=== PATIENT | male | born 1960 | race Caucasian/White ===

== ENCOUNTER 2019-02-13 18:18 | Emergency (ER) | payer OTHER ==
[~2019-02-13] VITALS: Ht 165.1 cm; Wt 86.2 kg
[2019-02-13 18:20] VITALS: BP 165/100
== END 2019-02-13 19:05 | disposition home or self-care (01) ==
LOC: ER 18:21
DX: M20.011 Mallet finger of right finger(s) (principal); W23.0XXA Caught, crushed, jammed, or pinched between moving objects, initial encounter; Y93.89 Activity, other specified; Y92.89 Other specified places as the place of occurrence of the external cause; Y99.0 Civilian activity done for income or pay
CPT/HCPCS: 73140-TC

== ENCOUNTER 2019-11-25 08:19 | Outpatient (CLI) | payer BC ==
[2019-11-25 09:32] LABS: BASOPHILS % (AUTO) 0.5 % (0.0-2.0); EOSINOPHILS % (AUTO) 1.3 % (0.0-6.0); HEMATOCRIT 45 % (39-51); HEMOGLOBIN 14.6 g/dL (13.5-17.5); LYMPHOCYTES # (AUTO) 2.6 /CMM (0.8-4.8); LYMPHOCYTES % (AUTO) 45.8 % (20.0-44.0); MEAN CORPUSCULAR HGB CONC 33 g/dl (31.0-36.0); MEAN CORPUSCULAR VOLUME 96 fL (80-96); MONOCYTES # (AUTO) 0.5 /CMM (0.1-1.30); MONOCYTES % (AUTO) 8.2 % (2.0-12.0); NEUTROPHILS # (AUTO) 2.5 /CMM (1.8-8.9); NEUTROPHILS % (AUTO) 44.2 % (43.0-81.0); PLATELET COUNT (AUTO) 268 /CMM (150-450); RED BLOOD CELL COUNT(AUTO) 4.68 MIL/uL (4.5-6.0); WHITE BLOOD COUNT (AUTO) 5.7 K/uL (4.3-11.0)
[2019-11-25 09:34] LABS: APPEARANCE,URINE CLEAR (CLEAR); BILIRUBIN,URINE NEGATIVE (NEGATIVE); BLOOD, URINE NEGATIVE Ery/uL (NEGATIVE); COLOR,URINE YELLOW (YELLOW); KETONES,URINE NEGATIVE (NEGATIVE); LEUKOCYTE ESTERASE ,URINE NEGATIVE (NEGATIVE); NITRITE, URINE NEGATIVE (NEGATIVE); PROTEIN,URINE NEGATIVE (NEGATIVE); UGLUCOSE NEGATIVE (NEGATIVE); UROBILINOGEN,URINE 0.2 EU/dL (0.2)
[2019-11-25 09:44] LABS: ALBUMIN 3.3 g/dL (3.4-5.0); BILIRUBIN,TOTAL 0.4 mg/dL (0.2-1.0); CALCIUM, SERUM 8.7 mg/dL (8.5-10.1); CREATININE 0.7 mg/dL (0.6-1.3); POTASSIUM 4.2 mmol/L (3.5-5.1); TOTAL PROTEIN, SERUM 7.7 g/dL (6.4-8.2)
[2019-11-25 09:55] LABS: PROSTATE SPECIFIC ANTIGEN SCR 2.06 ng/mL (0.00-4.00); THYROID STIMULATING HORMONE 1.588 uIU/mL (0.358-3.74); URIC ACID 5.9 mg/dL (2.6-7.2)
== END 2019-11-25 23:59 | disposition home or self-care (01) ==
LOC: LAB 08:19
PROVIDERS: ATTEND Legal Medicine
DX: I10 Essential (primary) hypertension (principal); E11.9 Type 2 diabetes mellitus without complications; E55.9 Vitamin D deficiency, unspecified; E78.00 Pure hypercholesterolemia, unspecified; Z00.00 Encounter for general adult medical examination without abnormal findings
CPT/HCPCS: 36415; 80053-TC; 80061-TC; 81000-TC; 82306; 84153-TC; 84402; 84403; 84439-TC; 84443-TC; 84550-TC; 85025-TC

== ENCOUNTER 2021-01-18 19:09 | Emergency (ER) | payer BC, OTHER ==
[~2021-01-18] VITALS: Ht 175.3 cm; Wt 90.7 kg
--- NOTE | 2021-01-18 19:33 | NUR ---
PT BIBS C/O SUDDEN RIGHT KNEE PAIN. NO PRESENCE OF BRUISING OR OBVIOUS TRUAMA. PATIENT STATES THIS HAPPEN TO HIM 10 YEARS AGO DUE TO GOUT. PATIENT ALERT AND ORIENTED X3. AMBULATORY WITH NON LABORED BREATHING.
[2021-01-18] MEDS ORDERED: HYDROCODONE/APAP 5/325MG TABLET PO ONE (20:00)
[2021-01-18] MEDS ORDERED: HYDROCODONE/APAP 5/325MG TABLET ONE (20:04)
--- NOTE | 2021-01-18 20:12 | NUR ---
LAB AT BEDSIDE
[2021-01-18 20:43] LABS: BASOPHILS # (AUTO) 0.1 K/uL (0.0-0.2); BASOPHILS % (AUTO) 0.8 % (0.0-2.0); EOSINOPHILS % (AUTO) 0.1 % (0.0-6.0); HEMATOCRIT 42 % (39-51); LYMPHOCYTES # (AUTO) 2.9 K/uL (0.8-4.8); LYMPHOCYTES % (AUTO) 37.4 % (20.0-44.0); MEAN CORPUSCULAR HGB CONC 33 g/dl (31.0-36.0); MEAN CORPUSCULAR VOLUME 97 fL (80-96); MONOCYTES # (AUTO) 0.5 K/uL (0.1-1.30); NEUTROPHILS # (AUTO) 4.2 K/uL (1.8-8.9); NEUTROPHILS % (AUTO) 54.7 % (43.0-81.0); PLATELET COUNT (AUTO) 258 K/uL (150-450); RED BLOOD CELL COUNT(AUTO) 4.32 MIL/uL (4.5-6.0); WHITE BLOOD COUNT (AUTO) 7.8 K/uL (4.3-11.0)
[2021-01-18 20:50] LABS: CALCIUM, SERUM 8.7 mg/dL (8.5-10.1); CREATININE 0.9 mg/dL (0.6-1.3); POTASSIUM 3.7 mmol/L (3.5-5.1)
[2021-01-18] MEDS ORDERED: DEXAMETHASONE SOD PHOSPHATE 10 MG/ML VIAL IV ONE (21:30)
[2021-01-18] MEDS ORDERED: DEXAMETHASONE SOD PHOSPHATE 10 MG/ML VIAL ONE (21:42)
--- NOTE | 2021-01-18 21:44 | NUR ---
Patient discharged to home in stable condition. Written and verbal after care instructions given. Patient verbalizes understanding of instruction. Pt ambulatory with a steady gait
[2021-01-18 21:55] VITALS: BP 150/92
== END 2021-01-18 21:44 | disposition home or self-care (01) ==
LOC: ER 19:11
DX: M17.11 Unilateral primary osteoarthritis, right knee (principal); I10 Essential (primary) hypertension; E11.9 Type 2 diabetes mellitus without complications
CPT/HCPCS: 36415; 73564; 80048; 85025; 85378; 86140; 93971; 96374; 99285; J1100

== ENCOUNTER 2023-09-15 06:52 | Inpatient (IN) | payer OTHER ==
[~2023-09-15] VITALS: Ht 162.6 cm; Wt 86.2 kg
[2023-09-15] MEDS ORDERED: POLYMYXIN B SULFATE 500,000 UNITS ONE (06:58)
[2023-09-15] MEDS ORDERED: BUPIVACAINE 0.5 % PF 150 MG/30 ML VIAL ONE (06:58)
[2023-09-15] MEDS ORDERED: MENTHOL/CETYLPYRD (CEPACOL) 1 LOZ LOZENGE PO PRN (07:30)
[2023-09-15] MEDS ORDERED: diphenhydrAMINE HCL 25 MG CAPSULE PO PRN (07:30)
[2023-09-15] MEDS ORDERED: CLONIDINE HCL 0.1 MG TABLET PO PRN (07:30)
[2023-09-15] MEDS ORDERED: MAG HYDROX/AL HYDROX/SIMETH 30 ML UDC PO PRN (07:30)
[2023-09-15] MEDS ORDERED: TRANEXAMIC ACID 3,000 MG in SODIUM CHLORIDE IRRIG SOLUTION 70 ML IR ONE (08:00)
[2023-09-15] MEDS ORDERED: HYDROMORPHONE INJ 2 MG/ML DISP.SYRIN ONE (08:13)
[2023-09-15] MEDS ORDERED: MIDAZOLAM HCL 2 MG/2ML VIAL ONE (08:13)
[2023-09-15] MEDS ORDERED: FENTANYL PF 100MCG/2ML AMPUL ONE (08:13)
[2023-09-15] MEDS ORDERED: BUPIVACAINE 0.25% 75 MG/30 ML VIAL ONE (08:32)
[2023-09-15] MEDS ORDERED: DOCUSATE SODIUM 100 MG CAPSULE PO SCH (09:00)
[2023-09-15] MEDS ORDERED: ROSU10TA29 PO (11:02)
[2023-09-15] MEDS ORDERED: METF-881 PO (11:02)
[2023-09-15] MEDS ORDERED: LOSA50TA39 PO (11:02)
[2023-09-15] MEDS: FAMOTIDINE (20 MG) 20 MG TABLET PO SCH ×2 (12:13→21:16)
[2023-09-15] MEDS ORDERED: BISACODYL SUPP (10 MG) 10 MG/SUPP.RECT SUPP.RECT RC PRN (13:30)
[2023-09-15] MEDS ORDERED: SENNOSIDES 8.6 MG TABLET PO PRN (13:30)
[2023-09-15] MEDS ORDERED: ZOLPIDEM TARTRATE 5 MG TABLET PO PRN (13:30)
[2023-09-15] MEDS ORDERED: DOCUSATE SODIUM 250 MG CAPSULE PO PRN (13:30)
[2023-09-15] MEDS: oxyCODONE IR immediate release 5 MG TABLET PO PRN ×2 (13:34→20:14)
[2023-09-15 16:00] VITALS: BP 134/83; TEMP 97.8; O2SAT 98
[2023-09-15] MEDS: IV LR 1000 ML 1,000 ML IV PRN (16:48)
[2023-09-15] MEDS: DOCUSATE SODIUM 100 MG CAPSULE PO SCH (16:49)
[2023-09-15] MEDS: ANCEF 1 GM/50 ML D5W IV SCH (16:49)
[2023-09-15 21:11] VITALS: BP 145/77; TEMP 98.4; O2SAT 96
[2023-09-15] MEDS: POLYETHYLENE GLYCOL 3350 17 GM POWD.PACK PO SCH (21:15)
[2023-09-15] MEDS: TAMSULOSIN 0.4 MG CAP.SR.24H PO SCH (21:16)
[2023-09-15 23:30] VITALS: BP 132/62
[2023-09-15] MEDS: HYDROMORPHONE 1 MG/1 ML DISP.SYRIN IV PRN (23:32)
[2023-09-16 08:00] VITALS: BP 154/79; TEMP 99.1; O2SAT 93
[2023-09-16] MEDS: ASPIRIN 325 MG TABLET PO SCH (08:21)
[2023-09-16] MEDS: ONDANSETRON HCL/PF 4 MG/2 ML VIAL IV PRN (14:19)
[2023-09-16 16:00] VITALS: BP 152/82; TEMP 99.7; O2SAT 94
[2023-09-16 20:03] VITALS: BP 145/76; TEMP 98.8; O2SAT 94
[2023-09-16] MEDS ORDERED: POLYETHYLENE GLYCOL 3350 17 GM POWD.PACK PO SCH (22:00)
[2023-09-17 06:31] LABS: BASOPHILS % (AUTO) 0.2 % (0.0-2.0); EOSINOPHILS % (AUTO) 0.1 % (0.0-6.0); HEMATOCRIT 35 % (39-51); HEMOGLOBIN 11.7 g/dL (13.5-17.5); LYMPHOCYTES % (AUTO) 11.9 % (20.0-44.0); MEAN CORPUSCULAR HEMOGLOBIN 32 PG (26.0-33.0); MEAN CORPUSCULAR HGB CONC 34 g/dl (31.0-36.0); MEAN CORPUSCULAR VOLUME 94 fL (80-96); MONOCYTES # (AUTO) 0.9 K/uL (0.1-1.30); MONOCYTES % (AUTO) 10.8 % (2.0-12.0); NEUTROPHILS # (AUTO) 6.8 K/uL (1.8-8.9); PLATELET COUNT (AUTO) 192 K/uL (150-450); RED BLOOD CELL COUNT(AUTO) 3.71 MIL/uL (4.5-6.0); RED CELL DISTRIBUTION WIDTH 13.6 % (11.5-15.0); WHITE BLOOD COUNT (AUTO) 8.8 K/uL (4.3-11.0)
[2023-09-17 06:58] LABS: CALCIUM, SERUM 8.8 mg/dL (8.5-10.1); CREATININE 0.8 mg/dL (0.6-1.3); POTASSIUM 3.8 mmol/L (3.5-5.1)
[2023-09-17 07:00] VITALS: BP 163/75; TEMP 98.4; O2SAT 95
[2023-09-17] MEDS: ATORVASTATIN 40 MG TABLET PO SCH (08:32)
[2023-09-17] MEDS: LOSARTAN POTASSIUM 50 MG TABLET PO SCH (08:32)
[2023-09-17] MEDS: METFORMIN XR 500 MG TAB.SR.24H PO SCH (09:23)
[2023-09-17] MEDS: MAGNESIUM HYDROXIDE 30 ML UDC PO PRN (12:23)
[2023-09-17 16:00] VITALS: BP 159/71; TEMP 99.5; O2SAT 93
[2023-09-17] MEDS: ACETAMINOPHEN 325 MG TABLET PO PRN (18:18)
== END 2023-09-17 18:15 | DRG 470 ==
LOC: DS 06:52 → MED 10:43
PROVIDERS: ADMIT Legal Medicine; ATTEND Nurse Practitioner Acute Care
PROC: 0SRD0J9 Replacement of Left Knee Joint with Synthetic Substitute, Cemented, Open Approach (ICD-10-PCS; principal; 2023-09-15)
DX: M17.12 Unilateral primary osteoarthritis, left knee (principal); N40.0 Benign prostatic hyperplasia without lower urinary tract symptoms; E11.9 Type 2 diabetes mellitus without complications; E66.9 Obesity, unspecified; I10 Essential (primary) hypertension; E78.5 Hyperlipidemia, unspecified; Z79.84 Long term (current) use of oral hypoglycemic drugs; Z68.32 Body mass index [BMI] 32.0-32.9, adult
CPT/HCPCS: 36415; 80048-TC; 82962-TC; 85025-TC; 97110-TC; 97116-TC; 97530-TC; A4217; A4223; C1713; C1776; G0378; J0690; J1170; J1885; J2250; J2405; J2704; J2765; J3010; J3490; J7030; J7050; J7060; J7120